=== PATIENT | female | born 1940 | race Hispanic/Latino ===

== ENCOUNTER → 2023-09-29 | Outpatient (CLI) | payer OTHER, MEDICARE ==
[~2023-09-29] MED LIST: ASPI-1443 PO; CLOP-31 PO; IBUP-2784 PO; LISI40TA9 PO; METO25TA6 PO; NAPR-1023 PO; SIMV-43 PO
[2023-09-29] MEDS: REGADENOSON 0.4 MG/5 ML PF SYG IVP ONE (15:31)
== END | disposition home or self-care (01) ==
LOC: SHCH 08:01
PROVIDERS: ATTEND Internal Medicine Cardiovascular Disease
DX: I10 Essential (primary) hypertension (principal); R06.00 Dyspnea, unspecified; Z79.899 Other long term (current) drug therapy
CPT/HCPCS: 78452; 96374; 93017; J2785; A9500 ×2